=== PATIENT | male | born 1955 | race Caucasian/White ===

== ENCOUNTER 2020-07-14 15:41 | Inpatient (IN) ==
[2020-07-14] MEDS ORDERED: VANCOMYCIN INJ 1,000 MG in SODIUM CHLORIDE 0.9% 250 ML IV STA (17:20)
[2020-07-14] MEDS ORDERED: CALCIUM CARBONATE CHEW 500 MG TABLET PO PRN (17:23)
[2020-07-14] MEDS ORDERED: DEXTROSE 50% 25 GM/50 ML VIAL IV PRN (17:23)
[2020-07-14] MEDS ORDERED: ZALEPLON 5 MG CAPSULE PO PRN (17:23)
[2020-07-14] MEDS ORDERED: ALUMINUM/MAGNES/SIMETH MAX STR 30 ML UDCUP PO PRN (17:23)
[2020-07-14] MEDS ORDERED: hydrALAZINE 20 MG/1 ML VIAL IV PRN (17:23)
[2020-07-14] MEDS ORDERED: BISACODYL 5 MG TABLET PO PRN (17:23)
[2020-07-14] MEDS ORDERED: GLUCAGON 1 MG VIAL IM PRN (17:23)
[2020-07-14] MEDS ORDERED: SIMETHICONE CHEW 125 MG TABLET PO PRN (17:23)
[2020-07-14] MEDS ORDERED: LACTULOSE 20 GM/30 ML UDCUP PO PRN (17:23)
[2020-07-14] MEDS ORDERED: DOCUSATE SODIUM 100 MG CAPSULE PO PRN (17:23)
[2020-07-14] MEDS ORDERED: ACETAMINOPHEN 325 MG TABLET PO PRN (17:23)
[2020-07-14] MEDS ORDERED: guaiFENesin/DM ER 600-30 MG TABLET PO PRN (17:23)
[2020-07-14] MEDS ORDERED: VANCOMYCIN 1,000 MG VIAL ONE (17:50)
[2020-07-14 17:52] LABS: Basophils # 0.1 10*3/uL (0.0-0.2); Basophils % 0.5 % (0.0-0.8); Eosinophils # 0.1 10*3/uL (0.0-0.87); Hematocrit 30.7 VOL% (42.0-52.0); Immature Granulocytes % 0.4 %; Immature Granulocytes Absolute 0.05 #; Lymphocytes # 2.2 10*3/uL (1.4-4.0); Lymphocytes % 19.6 % (21.2-54.2); Mean Corpuscular HGB Conc 29.3 GM/DL (32-36); Mean Platelet Volume 7.8 FL (9.6-12.0); Monocytes % 8.4 % (1.7-12.7); Neutrophils % 70.1 % (38.7-73.9); Platelet Count 444 T/CUMM (130-400); Red Blood Count 3.61 MC/CUMM (3.8-5.5); Red Cell Distribution Width 16.3 % (9.3-17.3); White Blood Count 11.3 T/CUMM (4-12)
[2020-07-14] MEDS ORDERED: VANCOMYCIN INJ 1,000 MG in SODIUM CHLORIDE 0.9% 250 ML IV SCH (18:00)
[2020-07-14 18:12] LABS: Alanine Aminotransferase 15 U/L (16-61); Albumin 1.8 G/DL (3.4-5.0); Alkaline Phosphatase 94 U/L (45-117); Aspartate Amino Transferase 12 U/L (0-37); Bilirubin,Total < 0.39 MG/DL (0.2-1.0); Blood Urea Nitrogen 9 MG/DL (7-18); Calcium 8.3 MG/DL (8.5-10.1); Estimated Glom Filtration Rate 109 ML/MIN; Glucose 97 MG/DL (74-106); Osmolality,Calculated 271.8 MOS/KG (273-304); Total Protein 7.8 G/DL (6.4-8.3)
[2020-07-14] MEDS: oxyCODONE ER 40 MG TABLET PO SCH (18:22)
[2020-07-14] MEDS ORDERED: diphenhydrAMINE 50 MG/1 ML VIAL IV ONE (20:09)
[2020-07-14] MEDS ORDERED: methylPREDNISolone SOD SUC 125 MG/2 ML VIAL IV ONE (20:09)
[2020-07-14] MEDS: DIAZEPAM 5 MG TABLET PO SCH (21:34)
[2020-07-14] MEDS: CLINDAMYCIN INJ 600 MG in PREMIX 1 EACH IV SCH (21:37)
[2020-07-15] MEDS: oxyCODONE ER 10 MG TABLET PO PRN ×2 (02:28→18:25)
[2020-07-15] MEDS: CLINDAMYCIN INJ 600 MG in PREMIX 1 EACH IV SCH ×4 (03:40→20:58)
[2020-07-15 05:26] LABS: Basophils % 0.4 % (0.0-0.8); Eosinophils % 0.1 % (0.00-10.9); Hemoglobin 9.2 GM/DL (14.0-18.0); Immature Granulocytes % 0.6 %; Immature Granulocytes Absolute 0.06 #; Lymphocytes % 9.2 % (21.2-54.2); Mean Corpuscular HGB Conc 29.7 GM/DL (32-36); Mean Corpuscular Volume 85.2 FL (87-102); Mean Platelet Volume 7.9 FL (9.6-12.0); Monocytes % 1.5 % (1.7-12.7); Neutrophils % 88.2 % (38.7-73.9); Platelet Count 414 T/CUMM (130-400); Red Blood Count 3.64 MC/CUMM (3.8-5.5); Red Cell Distribution Width 16.3 % (9.3-17.3); White Blood Count 10.5 T/CUMM (4-12)
[2020-07-15 06:00] LABS: Albumin 1.8 G/DL (3.4-5.0); Bilirubin,Total 0.4 MG/DL (0.2-1.0); Calcium 8.5 MG/DL (8.5-10.1); Osmolality,Calculated 271.1 MOS/KG (273-304); Risk Ratio 4.38; Thyroid Stimulating Hormone 0.911 uIU/ml (0.358-3.74); Total Protein 7.7 G/DL (6.4-8.3); VLDL CHOLESTEROL 17.2 MG/DL
[2020-07-15] MEDS: oxyCODONE ER 40 MG TABLET PO SCH ×2 (06:06→18:40)
[2020-07-15] MEDS: ASCORBIC ACID 500 MG TABLET PO SCH (08:29)
[2020-07-15] MEDS: CHOLECALCIFEROL 1,000 UNIT TABLET PO SCH (08:29)
[2020-07-15] MEDS: DIAZEPAM 5 MG TABLET PO SCH ×3 (08:29→20:48)
[2020-07-15] MEDS: PANTOPRAZOLE 40 MG TABLET PO SCH (08:29)
[2020-07-15] MEDS: MULTIVITAMIN (CENTRUM) TABLET PO SCH (08:29)
[2020-07-15] MEDS ORDERED: SODIUM HYPOCHLORITE 0.25% IRR 1 APPLIC in IV BAG 1 EACH IRRIG PRN (09:03)
[2020-07-15] MEDS: CEFEPIME 1,000 MG in SODIUM CHLORIDE 0.9% 100 ML IV SCH ×3 (10:53→21:44)
[2020-07-15 19:05] LABS: Bilirubin,Urine Negative (Negative); Blood, Urine Negative (Negative); Glucose,Urine (UA) Negative (Negative); Ketones,Urine Negative (Negative); Mucus,Urine Occasional /LPF (Occasional); Nitrite,Urine Negative (Negative); Protein,Urine Negative; RBC,Urine 14 /HPF (0-4); Squamous Epithelial Cell,Urine Occasional /HPF (0-10); Urine Appearance Slightly Hazy (Clear); Urine Color Yellow (Yellow); Urine Specific Gravity 1.006 (1.001-1.035); Urine Urobilinogen < 2.0 EU/DL (0.2-1.0); WBC,Urine 93 /HPF (0-6)
[2020-07-16] MEDS: CLINDAMYCIN INJ 600 MG in PREMIX 1 EACH IV SCH ×3 (03:39→15:10)
[2020-07-16] MEDS: CEFEPIME 1,000 MG in SODIUM CHLORIDE 0.9% 100 ML IV SCH ×4 (03:43→20:42)
[2020-07-16] MEDS: oxyCODONE ER 40 MG TABLET PO SCH ×2 (05:48→17:24)
[2020-07-16 06:05] LABS: Basophils # 0.1 10*3/uL (0.0-0.2); Basophils % 0.4 % (0.0-0.8); Eosinophils % 0.1 % (0.00-10.9); Hematocrit 28.3 VOL% (42.0-52.0); Hemoglobin 8.5 GM/DL (14.0-18.0); Immature Granulocytes % 0.6 %; Immature Granulocytes Absolute 0.07 #; Lymphocytes # 3.2 10*3/uL (1.4-4.0); Lymphocytes % 25.7 % (21.2-54.2); Mean Corpuscular Volume 84.7 FL (87-102); Mean Platelet Volume 8.2 FL (9.6-12.0); Monocytes % 8.3 % (1.7-12.7); Neutrophils % 64.9 % (38.7-73.9); Platelet Count 382 T/CUMM (130-400); Red Blood Count 3.34 MC/CUMM (3.8-5.5); Red Cell Distribution Width 16.3 % (9.3-17.3); White Blood Count 12.4 T/CUMM (4-12)
[2020-07-16 06:28] LABS: Alanine Aminotransferase 18 U/L (16-61); Albumin 1.7 G/DL (3.4-5.0); Alkaline Phosphatase 82 U/L (45-117); Aspartate Amino Transferase 17 U/L (0-37); Bilirubin,Total < 0.39 MG/DL (0.2-1.0); Blood Urea Nitrogen 11 MG/DL (7-18); Calcium 8.4 MG/DL (8.5-10.1); Estimated Glom Filtration Rate 125 ML/MIN; Glucose 96 MG/DL (74-106); Osmolality,Calculated 273.7 MOS/KG (273-304); Total Protein 7.1 G/DL (6.4-8.3)
[2020-07-16 07:20] LABS: % Iron Saturation 34.6 % (18-50); Ferritin 302.8 ng/ml (26-388)
[2020-07-16 07:23] LABS: Folate 6.6 NG/ML (5.4-24.0)
[2020-07-16] MEDS: PANTOPRAZOLE 40 MG TABLET PO SCH (09:04)
[2020-07-16] MEDS: MULTIVITAMIN (CENTRUM) TABLET PO SCH (09:04)
[2020-07-16] MEDS: DIAZEPAM 5 MG TABLET PO SCH ×3 (09:04→20:42)
[2020-07-16] MEDS: ASCORBIC ACID 500 MG TABLET PO SCH (09:05)
[2020-07-16] MEDS: CHOLECALCIFEROL 1,000 UNIT TABLET PO SCH (09:09)
[2020-07-16] MEDS ORDERED: IRON SUCROSE 300 MG in SODIUM CHLORIDE 0.9% 100 ML IV ONE (11:00)
[2020-07-16] MEDS: FERROUS SULFATE 325 MG TABLET PO SCH ×2 (15:10→20:42)
[2020-07-17] MEDS: CEFEPIME 1,000 MG in SODIUM CHLORIDE 0.9% 100 ML IV SCH ×4 (03:14→21:13)
[2020-07-17] MEDS: oxyCODONE ER 40 MG TABLET PO SCH ×2 (05:39→17:30)
[2020-07-17 05:48] LABS: Basophils # 0.1 10*3/uL (0.0-0.2); Basophils % 0.6 % (0.0-0.8); Eosinophils # 0.1 10*3/uL (0.0-0.87); Eosinophils % 1.4 % (0.00-10.9); Hematocrit 31.6 VOL% (42.0-52.0); Hemoglobin 9.6 GM/DL (14.0-18.0); Immature Granulocytes % 0.8 %; Immature Granulocytes Absolute 0.08 #; Lymphocytes # 2.7 10*3/uL (1.4-4.0); Lymphocytes % 27.1 % (21.2-54.2); Mean Corpuscular HGB Conc 30.4 GM/DL (32-36); Mean Corpuscular Volume 82.9 FL (87-102); Mean Platelet Volume 8.1 FL (9.6-12.0); Neutrophils % 61.1 % (38.7-73.9); Platelet Count 425 T/CUMM (130-400); Red Blood Count 3.81 MC/CUMM (3.8-5.5); Red Cell Distribution Width 16.8 % (9.3-17.3); White Blood Count 10.1 T/CUMM (4-12)
[2020-07-17 06:24] LABS: Alanine Aminotransferase 19 U/L (16-61); Albumin 1.8 G/DL (3.4-5.0); Alkaline Phosphatase 82 U/L (45-117); Aspartate Amino Transferase 15 U/L (0-37); Bilirubin,Total < 0.39 MG/DL (0.2-1.0); Blood Urea Nitrogen 8 MG/DL (7-18); Calcium 8.6 MG/DL (8.5-10.1); Estimated Glom Filtration Rate 125 ML/MIN; Glucose 91 MG/DL (74-106); Osmolality,Calculated 272.7 MOS/KG (273-304); Total Protein 7.2 G/DL (6.4-8.3)
[2020-07-17] MEDS: MULTIVITAMIN (CENTRUM) TABLET PO SCH (09:55)
[2020-07-17] MEDS: DIAZEPAM 5 MG TABLET PO SCH ×3 (09:55→21:08)
[2020-07-17] MEDS: FERROUS SULFATE 325 MG TABLET PO SCH ×3 (09:55→21:08)
[2020-07-17] MEDS: PANTOPRAZOLE 40 MG TABLET PO SCH (09:55)
[2020-07-17] MEDS: CHOLECALCIFEROL 1,000 UNIT TABLET PO SCH (09:55)
[2020-07-17] MEDS: ASCORBIC ACID 500 MG TABLET PO SCH (09:55)
[2020-07-17] MEDS: ZINC SULFATE 220 MG CAPSULE PO SCH (15:50)
[2020-07-18] MEDS: oxyCODONE ER 10 MG TABLET PO PRN (03:24)
[2020-07-18] MEDS: CEFEPIME 1,000 MG in SODIUM CHLORIDE 0.9% 100 ML IV SCH ×3 (03:26→14:42)
[2020-07-18] MEDS: oxyCODONE ER 40 MG TABLET PO SCH (06:09)
[2020-07-18 06:14] LABS: Basophils # 0.1 10*3/uL (0.0-0.2); Basophils % 0.7 % (0.0-0.8); Eosinophils # 0.1 10*3/uL (0.0-0.87); Eosinophils % 0.9 % (0.00-10.9); Hematocrit 33.8 VOL% (42.0-52.0); Hemoglobin 10.3 GM/DL (14.0-18.0); Immature Granulocytes % 0.7 %; Immature Granulocytes Absolute 0.08 #; Lymphocytes # 3.5 10*3/uL (1.4-4.0); Lymphocytes % 28.9 % (21.2-54.2); Mean Corpuscular HGB Conc 30.5 GM/DL (32-36); Mean Corpuscular Volume 83.5 FL (87-102); Mean Platelet Volume 8.4 FL (9.6-12.0); Neutrophils % 59.8 % (38.7-73.9); Platelet Count 434 T/CUMM (130-400); Red Blood Count 4.05 MC/CUMM (3.8-5.5); Red Cell Distribution Width 16.9 % (9.3-17.3); White Blood Count 12.1 T/CUMM (4-12)
[2020-07-18 06:29] LABS: Albumin 1.8 G/DL (3.4-5.0); Calcium 8.3 MG/DL (8.5-10.1); Osmolality,Calculated 277.4 MOS/KG (273-304); Total Protein 7.2 G/DL (6.4-8.3)
[2020-07-18 06:52] LABS: Hypochromasia 1+; Microcytosis 1+; Platelet Estimate Adequate
[2020-07-18] MEDS: DIAZEPAM 5 MG TABLET PO SCH ×2 (08:51→14:42)
[2020-07-18] MEDS: CHOLECALCIFEROL 1,000 UNIT TABLET PO SCH (08:52)
[2020-07-18] MEDS: MULTIVITAMIN (CENTRUM) TABLET PO SCH (08:52)
[2020-07-18] MEDS: FERROUS SULFATE 325 MG TABLET PO SCH ×2 (08:53→14:42)
[2020-07-18] MEDS: ASCORBIC ACID 500 MG TABLET PO SCH (08:53)
[2020-07-18] MEDS: ZINC SULFATE 220 MG CAPSULE PO SCH (08:53)
[2020-07-18] MEDS: PANTOPRAZOLE 40 MG TABLET PO SCH (08:55)
[2020-07-18 15:46] VITALS: BP 128/64
== END 2020-07-18 18:28 | disposition home health service (06) | DRG 593 ==
LOC: EDUNIT# → EDBD → N.ED 15:41 → SUATTDRO 17:23 → N.EDINP 17:23 → N.3E 20:15
PROVIDERS: ADMIT Hospitalist; ATTEND Family Medicine

== ENCOUNTER 2021-06-30 14:55 | Inpatient (IN) ==
[2021-06-30] MEDS ORDERED: ONDANSETRON 4 MG/2 ML VIAL ONE (16:54)
[2021-06-30] MEDS ORDERED: HYDROmorphone 2 MG/1 ML VIAL ONE (16:55)
[2021-06-30] MEDS ORDERED: ONDANSETRON 4 MG/2 ML VIAL IV STA (17:01)
[2021-06-30] MEDS ORDERED: HYDROmorphone 2 MG/1 ML VIAL IV STA (17:01)
[2021-06-30] MEDS ORDERED: GLUCAGON 1 MG VIAL IM PRN (17:31)
[2021-06-30] MEDS ORDERED: DEXTROSE 50% 25 GM/50 ML VIAL IV PRN (17:31)
[2021-06-30 17:43] LABS: Basophils % 0.3 % (0.0-0.8); Hematocrit 48.2 VOL% (42.0-52.0); Hemoglobin 15.6 GM/DL (14.0-18.0); Immature Granulocytes % 0.5 %; Immature Granulocytes Absolute 0.07 #; Lymphocytes # 1.9 10*3/uL (1.4-4.0); Lymphocytes % 12.6 % (21.2-54.2); Mean Corpuscular HGB Conc 32.4 GM/DL (32-36); Mean Corpuscular Volume 88.6 FL (87-102); Mean Platelet Volume 8.2 FL (9.6-12.0); Monocytes % 17.5 % (1.7-12.7); Neutrophils % 69.1 % (38.7-73.9); Platelet Count 332 T/CUMM (130-400); Red Blood Count 5.44 MC/CUMM (3.8-5.5); Red Cell Distribution Width 15.7 % (9.3-17.3); White Blood Count 15.3 T/CUMM (4-12)
[2021-06-30 17:50] LABS: Bilirubin,Urine Negative (Negative); Blood, Urine Small mg/dL (Negative); Glucose,Urine (UA) Negative (Negative); Ketones,Urine 20 mg/dL (Negative); Mucus,Urine Occasional /LPF (Occasional); Nitrite,Urine Negative (Negative); Protein,Urine 100 MG/DL; RBC,Urine 4 /HPF (0-4); Urine Appearance CLEAR (Clear); Urine Color Yellow (Yellow)
[2021-06-30 18:04] LABS: Albumin 3.4 G/DL (3.4-5.0); Calcium 8.8 MG/DL (8.5-10.1); Osmolality,Calculated 283.3 MOS/KG (273-304); Potassium 3.1 MMOL/L (3.5-5.1); Total Protein 8.4 G/DL (6.4-8.2)
[2021-06-30 18:05] LABS: Band Neutrophils 11 % (0-10); Lymphocytes 13 % (20-55); Metamyelocytes 1 %; Segmented Neutrophils 60 % (50-85); Total Cells Counted 100
[2021-06-30 18:06] LABS: Anisocytosis 1+; Macrocytosis Slight; Microcytosis 1+; Platelet Estimate Normal; Polychromasia Slight
[2021-06-30] MEDS ORDERED: ENOXAPARIN 100 MG/ML SYRINGE SUBCUT SCH (18:30)
[2021-06-30] MEDS: SODIUM CHLORIDE 0.9% 1,000 ML IV SCH (19:20)
[2021-06-30] MEDS: ALBUTEROL/IPRATROPIUM 3 ML NEB RESP TX SCH ×2 (19:44→23:55)
[2021-06-30] MEDS: cefTRIAXone 1,000 MG in SODIUM CHLORIDE 0.9% 100 ML IV SCH (20:02)
[2021-06-30] MEDS: AZITHROMYCIN INJ 500 MG in SODIUM CHLORIDE 0.9% 250 ML IV SCH (20:42)
[2021-06-30] MEDS ORDERED: POTASSIUM CHLORIDE INJ 40 MEQ in SODIUM CHLORIDE 0.9% 500 ML IV ONE (22:00)
[2021-06-30] MEDS: HYDROmorphone 2 MG/1 ML VIAL IV PRN (23:58)
[2021-07-01] MEDS: HYDROmorphone 2 MG/1 ML VIAL IV PRN ×3 (04:08→21:34)
[2021-07-01 06:00] LABS: Basophils % 0.3 % (0.0-0.8); Eosinophils % 0.3 % (0.00-10.9); Hematocrit 47.4 VOL% (42.0-52.0); Hemoglobin 15.7 GM/DL (14.0-18.0); Immature Granulocytes % 0.5 %; Immature Granulocytes Absolute 0.08 #; Lymphocytes # 1.8 10*3/uL (1.4-4.0); Lymphocytes % 12.3 % (21.2-54.2); Mean Corpuscular HGB Conc 33.1 GM/DL (32-36); Mean Corpuscular Volume 89.9 FL (87-102); Monocytes % 18.1 % (1.7-12.7); Neutrophils % 68.5 % (38.7-73.9); Platelet Count 309 T/CUMM (130-400); Red Blood Count 5.27 MC/CUMM (3.8-5.5); Red Cell Distribution Width 15.7 % (9.3-17.3); White Blood Count 14.8 T/CUMM (4-12)
[2021-07-01 06:11] LABS: Albumin 3.1 G/DL (3.4-5.0); Bilirubin,Total 1.5 MG/DL (0.20-1.00); Calcium 8.4 MG/DL (8.5-10.1); Potassium 3.4 MMOL/L (3.5-5.1)
[2021-07-01 06:34] LABS: Band Neutrophils 1 % (0-10); Lymphocytes 12 % (20-55); Platelet Estimate Adequate; Segmented Neutrophils 70 % (50-85); Total Cells Counted 100
[2021-07-01] MEDS: ALBUTEROL/IPRATROPIUM 3 ML NEB RESP TX SCH ×4 (06:52→19:55)
[2021-07-01] MEDS ORDERED: ENOXAPARIN 100 MG/ML SYRINGE SUBCUT SCH (08:00)
[2021-07-01] MEDS: POTASSIUM CHLORIDE RIDER 10 MEQ/100 ML PREMIX IV PRN ×3 (10:08→12:39)
[2021-07-01] MEDS: HEPARIN DRIP 25,000 UNITS/500 ML PREMIX IV SCH (11:14)
[2021-07-01] MEDS: hydrALAZINE 20 MG/1 ML VIAL IV PRN ×2 (12:10→18:54)
[2021-07-01] MEDS: SODIUM CHLORIDE 0.9% 1,000 ML IV SCH ×3 (14:00→23:37)
[2021-07-01] MEDS: cefTRIAXone 1,000 MG in SODIUM CHLORIDE 0.9% 100 ML IV SCH (17:50)
[2021-07-01] MEDS: AZITHROMYCIN INJ 500 MG in SODIUM CHLORIDE 0.9% 250 ML IV SCH (18:20)
[2021-07-02] MEDS: METOPROLOL TARTRATE 5 MG/5 ML VIAL IV STA ×2 (00:17→07:19)
[2021-07-02 00:42] LABS: Basophils # 0.1 10*3/uL (0.0-0.2); Basophils % 0.3 % (0.0-0.8); Eosinophils # 0.1 10*3/uL (0.0-0.87); Eosinophils % 0.3 % (0.00-10.9); Hematocrit 44.6 VOL% (42.0-52.0); Hemoglobin 13.9 GM/DL (14.0-18.0); Immature Granulocytes % 0.8 %; Immature Granulocytes Absolute 0.16 #; Lymphocytes # 3.8 10*3/uL (1.4-4.0); Lymphocytes % 20.2 % (21.2-54.2); Mean Corpuscular HGB Conc 31.2 GM/DL (32-36); Mean Corpuscular Volume 91.2 FL (87-102); Mean Platelet Volume 9.5 FL (9.6-12.0); Monocytes % 11.9 % (1.7-12.7); Neutrophils % 66.5 % (38.7-73.9); Platelet Count 274 T/CUMM (130-400); Red Blood Count 4.89 MC/CUMM (3.8-5.5); Red Cell Distribution Width 15.9 % (9.3-17.3)
[2021-07-02] MEDS ORDERED: DILTIAZEM 25 MG/5 ML VIAL IV ONE (00:51)
[2021-07-02 00:52] LABS: Alanine Aminotransferase < 6 U/L (16-61); Albumin 2.7 G/DL (3.4-5.0); Alkaline Phosphatase 81 U/L (45-117); Aspartate Amino Transferase 21 U/L (0-37); Blood Urea Nitrogen 15 MG/DL (7-18); Calcium 7.9 MG/DL (8.5-10.1); Carbon Dioxide 24 MMOL/L (21-32); Estimated Glom Filtration Rate 164 ML/MIN; Glucose 93 MG/DL (74-106); Osmolality,Calculated 275.7 MOS/KG (273-304); Sodium 138 MMOL/L (136-145); Total Protein 7.1 G/DL (6.4-8.2)
[2021-07-02 01:17] LABS: Reactive Lymphocytes 1+
[2021-07-02 01:18] LABS: Hypochromasia 1+; Platelet Estimate Normal
[2021-07-02] MEDS: POTASSIUM CHLORIDE RIDER 10 MEQ/100 ML PREMIX IV PRN ×9 (01:21→18:10)
[2021-07-02] MEDS ORDERED: DILTIAZEM INJ 100 MG in SODIUM CHLORIDE 0.9% 100 ML IV SCH (01:30)
[2021-07-02] MEDS: ALBUTEROL/IPRATROPIUM 3 ML NEB RESP TX SCH ×4 (02:49→20:34)
[2021-07-02] MEDS: HEPARIN DRIP 25,000 UNITS/500 ML PREMIX IV SCH ×3 (03:56→20:30)
[2021-07-02] MEDS: HYDROmorphone 2 MG/1 ML VIAL IV PRN ×5 (03:58→21:18)
[2021-07-02 05:33] LABS: Basophils % 0.2 % (0.0-0.8); Hematocrit 38.8 VOL% (42.0-52.0); Hemoglobin 12.7 GM/DL (14.0-18.0); Immature Granulocytes % 0.5 %; Immature Granulocytes Absolute 0.07 #; Lymphocytes # 2.7 10*3/uL (1.4-4.0); Mean Corpuscular HGB Conc 32.7 GM/DL (32-36); Mean Corpuscular Volume 90.7 FL (87-102); Neutrophils % 68.3 % (38.7-73.9); Platelet Count 218 T/CUMM (130-400); Red Blood Count 4.28 MC/CUMM (3.8-5.5); Red Cell Distribution Width 15.8 % (9.3-17.3); White Blood Count 13.4 T/CUMM (4-12)
[2021-07-02 05:57] LABS: Albumin 2.4 G/DL (3.4-5.0); Bilirubin,Total 1.2 MG/DL (0.20-1.00); Calcium 7.8 MG/DL (8.5-10.1); Osmolality,Calculated 280.3 MOS/KG (273-304); Potassium 3.3 MMOL/L (3.5-5.1); Total Protein 6.6 G/DL (6.4-8.2)
[2021-07-02] MEDS: SODIUM CHLORIDE 0.9% 1,000 ML IV SCH ×3 (09:34→17:04)
[2021-07-02] MEDS: PIPERACILLIN/TAZOBACTAM 3,375 MG in SODIUM CHLORIDE 0.9% 100 ML IV SCH ×2 (09:56→21:11)
[2021-07-02] MEDS ORDERED: MAGNESIUM SULF RIDER 4 GM/100 ML PREMIX IV PRN (11:47)
[2021-07-02] MEDS ORDERED: MAGNESIUM SULF RIDER 2 GM/50 ML PREMIX IV PRN (11:47)
[2021-07-02] MEDS: METOPROLOL TARTRATE 5 MG/5 ML VIAL IV SCH ×2 (12:23→17:04)
[2021-07-03] MEDS: ALBUTEROL/IPRATROPIUM 3 ML NEB RESP TX SCH ×4 (00:41→20:17)
[2021-07-03] MEDS: HYDROmorphone 2 MG/1 ML VIAL IV PRN ×6 (00:47→21:53)
[2021-07-03] MEDS: METOPROLOL TARTRATE 5 MG/5 ML VIAL IV SCH ×4 (01:20→17:25)
[2021-07-03] MEDS: PIPERACILLIN/TAZOBACTAM 3,375 MG in SODIUM CHLORIDE 0.9% 100 ML IV SCH ×3 (01:50→17:20)
[2021-07-03 06:52] LABS: Basophils # 0.1 10*3/uL (0.0-0.2); Basophils % 0.4 % (0.0-0.8); Eosinophils # 0.2 10*3/uL (0.0-0.87); Eosinophils % 1.2 % (0.00-10.9); Hematocrit 43.3 VOL% (42.0-52.0); Hemoglobin 13.6 GM/DL (14.0-18.0); Immature Granulocytes % 0.9 %; Immature Granulocytes Absolute 0.11 #; Lymphocytes # 3.2 10*3/uL (1.4-4.0); Lymphocytes % 24.8 % (21.2-54.2); Mean Corpuscular HGB Conc 31.4 GM/DL (32-36); Mean Corpuscular Volume 93.7 FL (87-102); Mean Platelet Volume 10.5 FL (9.6-12.0); Monocytes % 10.9 % (1.7-12.7); Neutrophils % 61.8 % (38.7-73.9); Platelet Count 174 T/CUMM (130-400); Red Blood Count 4.62 MC/CUMM (3.8-5.5); Red Cell Distribution Width 15.3 % (9.3-17.3); White Blood Count 12.8 T/CUMM (4-12)
[2021-07-03 07:08] LABS: Alanine Aminotransferase < 6 U/L (16-61); Albumin 2.3 G/DL (3.4-5.0); Alkaline Phosphatase 74 U/L (45-117); Aspartate Amino Transferase 21 U/L (0-37); Blood Urea Nitrogen 13 MG/DL (7-18); Calcium 8.2 MG/DL (8.5-10.1); Carbon Dioxide 23 MMOL/L (21-32); Estimated Glom Filtration Rate 164 ML/MIN; Glucose 68 MG/DL (74-106); Potassium 3.8 MMOL/L (3.5-5.1); Sodium 136 MMOL/L (136-145); Total Protein 6.7 G/DL (6.4-8.2)
[2021-07-03 07:17] LABS: Cancer Antigen 19-9 3.42 U/ML (0-35); Carcinoembryonic Antigen 5.5 NG/ML (0.0-5.0)
[2021-07-03] MEDS: DEXTROSE 5% LACTATED RINGERS 1,000 ML IV SCH ×2 (07:41→16:38)
[2021-07-03 08:32] LABS: INR 1.1; PT Patient Result 12.5 SECS (10.5-12.0)
[2021-07-03] MEDS: SODIUM CHLORIDE 0.45% 1,000 ML IV SCH (11:33)
[2021-07-03] MEDS: HEPARIN DRIP 25,000 UNITS/500 ML PREMIX IV SCH ×2 (11:33→21:32)
[2021-07-03] MEDS ORDERED: DIAZEPAM 5 MG TABLET PO ONE (12:30)
[2021-07-03] MEDS: SODIUM CHLORIDE 0.9% 1,000 ML IV SCH (13:04)
[2021-07-03] MEDS: SODIUM HYPOCHLORITE 0.25% IRRIG 473 ML BOTTLE TOP SCH (14:52)
[2021-07-03] MEDS: hydrALAZINE 20 MG/1 ML VIAL IV PRN (15:20)
[2021-07-04] MEDS: ALBUTEROL/IPRATROPIUM 3 ML NEB RESP TX SCH ×4 (00:30→19:15)
[2021-07-04] MEDS: DEXTROSE 5% LACTATED RINGERS 1,000 ML IV SCH ×4 (01:03→23:14)
[2021-07-04] MEDS: PIPERACILLIN/TAZOBACTAM 3,375 MG in SODIUM CHLORIDE 0.9% 100 ML IV SCH ×3 (01:20→18:35)
[2021-07-04] MEDS: METOPROLOL TARTRATE 5 MG/5 ML VIAL IV SCH ×4 (01:20→18:35)
[2021-07-04] MEDS: HYDROmorphone 2 MG/1 ML VIAL IV PRN ×5 (01:20→23:50)
[2021-07-04 05:50] LABS: Albumin 2.5 G/DL (3.4-5.0); Bilirubin,Total 1.9 MG/DL (0.20-1.00); Calcium 8.3 MG/DL (8.5-10.1); Osmolality,Calculated 272.7 MOS/KG (273-304); Potassium 2.9 MMOL/L (3.5-5.1)
[2021-07-04 07:27] LABS: Basophils # 0.1 10*3/uL (0.0-0.2); Basophils % 0.4 % (0.0-0.8); Eosinophils # 0.2 10*3/uL (0.0-0.87); Eosinophils % 1.7 % (0.00-10.9); Hematocrit 40.4 VOL% (42.0-52.0); Hemoglobin 12.9 GM/DL (14.0-18.0); Immature Granulocytes Absolute 0.14 #; Lymphocytes # 2.5 10*3/uL (1.4-4.0); Lymphocytes % 18.1 % (21.2-54.2); Mean Corpuscular HGB Conc 31.9 GM/DL (32-36); Mean Platelet Volume 9.7 FL (9.6-12.0); Monocytes % 10.1 % (1.7-12.7); Neutrophils % 68.7 % (38.7-73.9); Platelet Count 291 T/CUMM (130-400); Red Blood Count 4.49 MC/CUMM (3.8-5.5); White Blood Count 13.7 T/CUMM (4-12)
[2021-07-04] MEDS: hydrALAZINE 20 MG/1 ML VIAL IV PRN (10:03)
[2021-07-04] MEDS: POTASSIUM CHLORIDE RIDER 10 MEQ/100 ML PREMIX IV SCH ×3 (10:08→23:10)
[2021-07-04] MEDS ORDERED: DIAZEPAM 5 MG TABLET PO ONE (10:33)
[2021-07-04] MEDS: HEPARIN DRIP 25,000 UNITS/500 ML PREMIX IV SCH ×2 (11:09→19:29)
[2021-07-04] MEDS ORDERED: MAGNESIUM SULF RIDER 1 GM/100 ML PREMIX IV ONE (11:14)
[2021-07-04] MEDS: SODIUM CHLORIDE 0.45% 1,000 ML IV SCH (12:16)
[2021-07-04 14:18] LABS: INR 1.5; PT Patient Result 15.8 SECS (10.5-12.0); Partial Thromboplastin Time 32.2 SECS (23.9-33.8)
[2021-07-04] MEDS: SODIUM HYPOCHLORITE 0.25% IRRIG 473 ML BOTTLE TOP SCH (14:26)
[2021-07-04] MEDS ORDERED: HEPARIN 5,000 UNIT/1 ML VIAL IV ONE (14:29)
[2021-07-04 21:42] LABS: INR 1.3; PT Patient Result 14.7 SECS (10.5-12.0); Partial Thromboplastin Time 68.5 SECS (23.9-33.8)
[2021-07-05] MEDS: ONDANSETRON 4 MG/2 ML VIAL IV PRN ×4 (00:10→23:19)
[2021-07-05] MEDS: ALBUTEROL/IPRATROPIUM 3 ML NEB RESP TX SCH ×4 (00:25→19:25)
[2021-07-05] MEDS: POTASSIUM CHLORIDE RIDER 10 MEQ/100 ML PREMIX IV SCH ×6 (01:15→18:07)
[2021-07-05] MEDS: PIPERACILLIN/TAZOBACTAM 3,375 MG in SODIUM CHLORIDE 0.9% 100 ML IV SCH ×3 (01:30→17:28)
[2021-07-05] MEDS: METOPROLOL TARTRATE 5 MG/5 ML VIAL IV SCH ×4 (01:30→17:58)
[2021-07-05] MEDS: HYDROmorphone 2 MG/1 ML VIAL IV PRN ×6 (03:25→21:37)
[2021-07-05 06:23] LABS: Basophils % 0.2 % (0.0-0.8); Eosinophils # 0.3 10*3/uL (0.0-0.87); Eosinophils % 1.6 % (0.00-10.9); Hematocrit 42.2 VOL% (42.0-52.0); Hemoglobin 13.3 GM/DL (14.0-18.0); Immature Granulocytes Absolute 0.18 #; Lymphocytes # 3.1 10*3/uL (1.4-4.0); Lymphocytes % 17.2 % (21.2-54.2); Mean Corpuscular HGB Conc 31.5 GM/DL (32-36); Mean Corpuscular Volume 89.6 FL (87-102); Mean Platelet Volume 9.2 FL (9.6-12.0); Monocytes % 8.3 % (1.7-12.7); Neutrophils % 71.7 % (38.7-73.9); Platelet Count 337 T/CUMM (130-400); Red Blood Count 4.71 MC/CUMM (3.8-5.5); Red Cell Distribution Width 14.7 % (9.3-17.3); White Blood Count 17.9 T/CUMM (4-12)
[2021-07-05 06:44] LABS: Albumin 2.4 G/DL (3.4-5.0); Bilirubin,Total 1.2 MG/DL (0.20-1.00); Calcium 8.2 MG/DL (8.5-10.1); Osmolality,Calculated 272.7 MOS/KG (273-304); Potassium 2.8 MMOL/L (3.5-5.1); Total Protein 7.1 G/DL (6.4-8.2)
[2021-07-05] MEDS: DEXTROSE 5% LACTATED RINGERS 1,000 ML IV SCH ×3 (09:18→23:29)
[2021-07-05] MEDS: HEPARIN DRIP 25,000 UNITS/500 ML PREMIX IV SCH (09:18)
[2021-07-05] MEDS: POTASSIUM CHLORIDE RIDER 10 MEQ/100 ML PREMIX IV PRN ×3 (09:21→11:37)
[2021-07-05] MEDS: SODIUM HYPOCHLORITE 0.25% IRRIG 473 ML BOTTLE TOP SCH (09:22)
[2021-07-05] MEDS: hydrALAZINE 20 MG/1 ML VIAL IV SCH ×3 (09:27→21:36)
[2021-07-05] MEDS: SODIUM CHLORIDE 0.45% 1,000 ML IV SCH (10:29)
[2021-07-05] MEDS ORDERED: DIAZEPAM 10 MG/2 ML SYRINGE IV PRN (11:02)
[2021-07-05 21:18] LABS: Potassium 3.5 MMOL/L (3.5-5.1)
[2021-07-06] MEDS: ALBUTEROL/IPRATROPIUM 3 ML NEB RESP TX SCH ×2 (00:17→20:04)
[2021-07-06] MEDS: METOPROLOL TARTRATE 5 MG/5 ML VIAL IV SCH ×5 (00:29→17:12)
[2021-07-06] MEDS: PIPERACILLIN/TAZOBACTAM 3,375 MG in SODIUM CHLORIDE 0.9% 100 ML IV SCH ×3 (00:35→16:43)
[2021-07-06] MEDS: ONDANSETRON 4 MG/2 ML VIAL IV PRN ×3 (03:20→21:05)
[2021-07-06] MEDS: HYDROmorphone 2 MG/1 ML VIAL IV PRN ×5 (03:20→21:07)
[2021-07-06] MEDS: hydrALAZINE 20 MG/1 ML VIAL IV SCH ×4 (03:31→23:00)
[2021-07-06 06:24] LABS: Basophils # 0.1 10*3/uL (0.0-0.2); Basophils % 0.5 % (0.0-0.8); Eosinophils # 0.4 10*3/uL (0.0-0.87); Eosinophils % 2.3 % (0.00-10.9); Hematocrit 42.6 VOL% (42.0-52.0); Hemoglobin 13.7 GM/DL (14.0-18.0); Immature Granulocytes % 1.2 %; Immature Granulocytes Absolute 0.19 #; Lymphocytes # 3.4 10*3/uL (1.4-4.0); Lymphocytes % 20.5 % (21.2-54.2); Mean Corpuscular HGB Conc 32.2 GM/DL (32-36); Mean Corpuscular Volume 90.6 FL (87-102); Monocytes % 8.4 % (1.7-12.7); Neutrophils % 67.1 % (38.7-73.9); Platelet Count 326 T/CUMM (130-400); White Blood Count 16.5 T/CUMM (4-12)
[2021-07-06 06:42] LABS: Albumin 2.4 G/DL (3.4-5.0); Bilirubin,Total 0.8 MG/DL (0.20-1.00); Calcium 8.6 MG/DL (8.5-10.1); Osmolality,Calculated 266.2 MOS/KG (273-304); Potassium 3.9 MMOL/L (3.5-5.1); Total Protein 6.9 G/DL (6.4-8.2)
[2021-07-06] MEDS: POTASSIUM CHLORIDE RIDER 10 MEQ/100 ML PREMIX IV PRN ×2 (06:55→11:33)
[2021-07-06] MEDS ORDERED: LACTATED RINGERS 1,000 ML IV SCH (08:30)
[2021-07-06] MEDS ORDERED: LIDOCAINE 2% 5 ML VIAL ONE (08:46)
[2021-07-06] MEDS ORDERED: ETOMIDATE 20 MG/10 ML VIAL IV ONE (08:46)
[2021-07-06] MEDS ORDERED: propofoL 200 MG/20 ML VIAL IV ONE (08:46)
[2021-07-06] MEDS: SODIUM CHLORIDE 0.45% 1,000 ML IV SCH (10:30)
[2021-07-06] MEDS: DEXTROSE 5% LACTATED RINGERS 1,000 ML IV SCH ×2 (10:35→16:42)
[2021-07-06] MEDS: SODIUM HYPOCHLORITE 0.25% IRRIG 473 ML BOTTLE TOP SCH (10:42)
[2021-07-07] MEDS: METOPROLOL TARTRATE 5 MG/5 ML VIAL IV SCH ×4 (00:20→19:43)
[2021-07-07] MEDS: DEXTROSE 5% LACTATED RINGERS 1,000 ML IV SCH ×5 (01:09→23:26)
[2021-07-07] MEDS: HYDROmorphone 2 MG/1 ML VIAL IV PRN ×7 (01:19→22:53)
[2021-07-07] MEDS: ONDANSETRON 4 MG/2 ML VIAL IV PRN ×3 (01:19→07:30)
[2021-07-07] MEDS: ALBUTEROL/IPRATROPIUM 3 ML NEB RESP TX SCH ×6 (01:44→19:50)
[2021-07-07] MEDS: PIPERACILLIN/TAZOBACTAM 3,375 MG in SODIUM CHLORIDE 0.9% 100 ML IV SCH ×3 (03:47→17:54)
[2021-07-07] MEDS: hydrALAZINE 20 MG/1 ML VIAL IV SCH ×4 (05:33→19:46)
[2021-07-07 06:41] LABS: Basophils # 0.1 10*3/uL (0.0-0.2); Basophils % 0.7 % (0.0-0.8); Eosinophils # 0.6 10*3/uL (0.0-0.87); Eosinophils % 4.8 % (0.00-10.9); Hematocrit 38.7 VOL% (42.0-52.0); Hemoglobin 12.2 GM/DL (14.0-18.0); Immature Granulocytes % 1.1 %; Immature Granulocytes Absolute 0.14 #; Lymphocytes % 22.5 % (21.2-54.2); Mean Corpuscular HGB Conc 31.5 GM/DL (32-36); Mean Corpuscular Volume 91.7 FL (87-102); Mean Platelet Volume 9.3 FL (9.6-12.0); Monocytes % 9.7 % (1.7-12.7); Neutrophils % 61.2 % (38.7-73.9); Platelet Count 296 T/CUMM (130-400); Red Blood Count 4.22 MC/CUMM (3.8-5.5); Red Cell Distribution Width 14.9 % (9.3-17.3); White Blood Count 13.1 T/CUMM (4-12)
[2021-07-07 07:39] LABS: Osmolality,Calculated 271.7 MOS/KG (273-304); Potassium 3.7 MMOL/L (3.5-5.1)
[2021-07-07] MEDS: SODIUM HYPOCHLORITE 0.25% IRRIG 473 ML BOTTLE TOP SCH (13:40)
[2021-07-07] MEDS: METOCLOPRAMIDE 10 MG/2 ML VIAL IV SCH (17:54)
[2021-07-08] MEDS: ALBUTEROL/IPRATROPIUM 3 ML NEB RESP TX SCH ×4 (00:17→19:50)
[2021-07-08] MEDS: METOPROLOL TARTRATE 5 MG/5 ML VIAL IV SCH ×3 (00:46→13:06)
[2021-07-08] MEDS: METOCLOPRAMIDE 10 MG/2 ML VIAL IV SCH ×4 (00:46→17:22)
[2021-07-08] MEDS: PIPERACILLIN/TAZOBACTAM 3,375 MG in SODIUM CHLORIDE 0.9% 100 ML IV SCH ×3 (00:49→17:24)
[2021-07-08] MEDS: hydrALAZINE 20 MG/1 ML VIAL IV SCH ×4 (02:17→19:52)
[2021-07-08] MEDS: HYDROmorphone 2 MG/1 ML VIAL IV PRN ×6 (03:52→21:48)
[2021-07-08 05:28] LABS: Basophils # 0.1 10*3/uL (0.0-0.2); Basophils % 0.8 % (0.0-0.8); Eosinophils # 0.7 10*3/uL (0.0-0.87); Eosinophils % 4.6 % (0.00-10.9); Hematocrit 41.3 VOL% (42.0-52.0); Hemoglobin 13.2 GM/DL (14.0-18.0); Immature Granulocytes Absolute 0.15 #; Lymphocytes # 3.3 10*3/uL (1.4-4.0); Lymphocytes % 21.2 % (21.2-54.2); Mean Corpuscular Volume 90.6 FL (87-102); Mean Platelet Volume 9.4 FL (9.6-12.0); Monocytes % 9.4 % (1.7-12.7); Platelet Count 368 T/CUMM (130-400); Red Blood Count 4.56 MC/CUMM (3.8-5.5); Red Cell Distribution Width 14.8 % (9.3-17.3); White Blood Count 15.5 T/CUMM (4-12)
[2021-07-08 05:58] LABS: Calcium 8.5 MG/DL (8.5-10.1); Osmolality,Calculated 269.8 MOS/KG (273-304); Potassium 3.5 MMOL/L (3.5-5.1)
[2021-07-08] MEDS: DEXTROSE 5% LACTATED RINGERS 1,000 ML IV SCH ×2 (09:54→16:23)
[2021-07-08] MEDS: SODIUM HYPOCHLORITE 0.25% IRRIG 473 ML BOTTLE TOP SCH (14:08)
[2021-07-08] MEDS: METOPROLOL TARTRATE 50 MG TABLET PO SCH (20:11)
[2021-07-09] MEDS: METOCLOPRAMIDE 10 MG/2 ML VIAL IV SCH ×4 (00:36→18:43)
[2021-07-09] MEDS: DEXTROSE 5% LACTATED RINGERS 1,000 ML IV SCH ×3 (00:53→16:21)
[2021-07-09] MEDS: ALBUTEROL/IPRATROPIUM 3 ML NEB RESP TX SCH ×4 (01:02→19:38)
[2021-07-09] MEDS: hydrALAZINE 20 MG/1 ML VIAL IV SCH (01:06)
[2021-07-09] MEDS: HYDROmorphone 2 MG/1 ML VIAL IV PRN ×4 (01:22→22:18)
[2021-07-09] MEDS: PIPERACILLIN/TAZOBACTAM 3,375 MG in SODIUM CHLORIDE 0.9% 100 ML IV SCH ×3 (01:22→16:29)
[2021-07-09 06:03] LABS: Basophils # 0.1 10*3/uL (0.0-0.2); Basophils % 0.5 % (0.0-0.8); Eosinophils # 0.8 10*3/uL (0.0-0.87); Eosinophils % 5.4 % (0.00-10.9); Hematocrit 39.8 VOL% (42.0-52.0); Hemoglobin 12.5 GM/DL (14.0-18.0); Immature Granulocytes % 0.9 %; Immature Granulocytes Absolute 0.14 #; Lymphocytes # 2.9 10*3/uL (1.4-4.0); Lymphocytes % 18.5 % (21.2-54.2); Mean Corpuscular HGB Conc 31.4 GM/DL (32-36); Mean Corpuscular Volume 89.6 FL (87-102); Mean Platelet Volume 8.8 FL (9.6-12.0); Monocytes % 10.4 % (1.7-12.7); Neutrophils % 64.3 % (38.7-73.9); Platelet Count 357 T/CUMM (130-400); Red Blood Count 4.44 MC/CUMM (3.8-5.5); White Blood Count 15.4 T/CUMM (4-12)
[2021-07-09 06:22] LABS: Calcium 8.6 MG/DL (8.5-10.1); Osmolality,Calculated 269.8 MOS/KG (273-304); Potassium 3.2 MMOL/L (3.5-5.1)
[2021-07-09] MEDS ORDERED: hydrALAZINE 20 MG/1 ML VIAL IV PRN (07:52)
[2021-07-09] MEDS: METOPROLOL TARTRATE 50 MG TABLET PO SCH ×2 (09:07→20:17)
[2021-07-09] MEDS: hydrALAZINE 25 MG TABLET PO SCH ×4 (09:07→20:08)
[2021-07-09] MEDS: SODIUM HYPOCHLORITE 0.25% IRRIG 473 ML BOTTLE TOP SCH (09:08)
[2021-07-09] MEDS ORDERED: POTASSIUM CHLORIDE 20 MEQ PACK PO ONE (09:51)
[2021-07-09] MEDS: POTASSIUM CHLORIDE RIDER 10 MEQ/100 ML PREMIX IV SCH (09:57)
[2021-07-10] MEDS: METOCLOPRAMIDE 10 MG/2 ML VIAL IV SCH ×3 (00:07→14:11)
[2021-07-10] MEDS: ALBUTEROL/IPRATROPIUM 3 ML NEB RESP TX SCH ×4 (01:47→19:00)
[2021-07-10] MEDS: DEXTROSE 5% LACTATED RINGERS 1,000 ML IV SCH ×4 (02:00→23:35)
[2021-07-10] MEDS: HYDROmorphone 2 MG/1 ML VIAL IV PRN ×5 (04:55→21:44)
[2021-07-10 04:59] LABS: Basophils # 0.1 10*3/uL (0.0-0.2); Basophils % 0.7 % (0.0-0.8); Eosinophils % 6.5 % (0.00-10.9); Hematocrit 38.6 VOL% (42.0-52.0); Hemoglobin 12.1 GM/DL (14.0-18.0); Immature Granulocytes % 0.6 %; Immature Granulocytes Absolute 0.09 #; Lymphocytes # 2.9 10*3/uL (1.4-4.0); Lymphocytes % 19.9 % (21.2-54.2); Mean Corpuscular HGB Conc 31.3 GM/DL (32-36); Mean Corpuscular Volume 91.5 FL (87-102); Mean Platelet Volume 9.2 FL (9.6-12.0); Monocytes % 9.2 % (1.7-12.7); Neutrophils % 63.1 % (38.7-73.9); Platelet Count 386 T/CUMM (130-400); Red Blood Count 4.22 MC/CUMM (3.8-5.5); Red Cell Distribution Width 15.3 % (9.3-17.3); White Blood Count 14.7 T/CUMM (4-12)
[2021-07-10 08:14] LABS: Calcium 8.1 MG/DL (8.5-10.1); Osmolality,Calculated 271.7 MOS/KG (273-304); Potassium 4.3 MMOL/L (3.5-5.1)
[2021-07-10] MEDS: hydrALAZINE 25 MG TABLET PO SCH ×4 (10:03→21:43)
[2021-07-10] MEDS: METOPROLOL TARTRATE 50 MG TABLET PO SCH ×2 (10:03→21:43)
[2021-07-10] MEDS: SODIUM HYPOCHLORITE 0.25% IRRIG 473 ML BOTTLE TOP SCH (10:08)
[2021-07-10] MEDS: METOCLOPRAMIDE 10 MG/10 ML UDCUP PO SCH ×2 (18:07→23:35)
[2021-07-11] MEDS: ALBUTEROL/IPRATROPIUM 3 ML NEB RESP TX SCH ×4 (00:09→19:35)
[2021-07-11] MEDS: HYDROmorphone 2 MG/1 ML VIAL IV PRN ×5 (01:02→20:35)
[2021-07-11] MEDS: METOCLOPRAMIDE 10 MG/10 ML UDCUP PO SCH ×3 (05:58→19:12)
[2021-07-11 06:37] LABS: Basophils # 0.1 10*3/uL (0.0-0.2); Basophils % 0.8 % (0.0-0.8); Eosinophils # 0.4 10*3/uL (0.0-0.87); Eosinophils % 2.4 % (0.00-10.9); Hematocrit 41.8 VOL% (42.0-52.0); Hemoglobin 12.8 GM/DL (14.0-18.0); Immature Granulocytes % 0.6 %; Immature Granulocytes Absolute 0.09 #; Lymphocytes # 3.5 10*3/uL (1.4-4.0); Lymphocytes % 22.9 % (21.2-54.2); Mean Corpuscular HGB Conc 30.6 GM/DL (32-36); Mean Corpuscular Volume 94.8 FL (87-102); Mean Platelet Volume 11.8 FL (9.6-12.0); Monocytes % 9.1 % (1.7-12.7); Neutrophils % 64.2 % (38.7-73.9); Platelet Count 208 T/CUMM (130-400); Red Blood Count 4.41 MC/CUMM (3.8-5.5); White Blood Count 15.4 T/CUMM (4-12)
[2021-07-11 07:14] LABS: Calcium 8.2 MG/DL (8.5-10.1); Osmolality,Calculated 265.1 MOS/KG (273-304); Potassium 4.1 MMOL/L (3.5-5.1)
[2021-07-11] MEDS: hydrALAZINE 25 MG TABLET PO SCH ×4 (11:18→20:36)
[2021-07-11] MEDS: SODIUM HYPOCHLORITE 0.25% IRRIG 473 ML BOTTLE TOP SCH (11:19)
[2021-07-11] MEDS: METOPROLOL TARTRATE 50 MG TABLET PO SCH ×2 (11:19→20:36)
[2021-07-11] MEDS: PANTOPRAZOLE 40 MG TABLET PO SCH (11:19)
[2021-07-11] MEDS: DEXTROSE 5% LACTATED RINGERS 1,000 ML IV SCH ×2 (12:00→17:29)
[2021-07-12] MEDS: ALBUTEROL/IPRATROPIUM 3 ML NEB RESP TX SCH ×4 (00:05→19:53)
[2021-07-12] MEDS: METOCLOPRAMIDE 10 MG/10 ML UDCUP PO SCH ×4 (00:12→17:47)
[2021-07-12] MEDS: HYDROmorphone 2 MG/1 ML VIAL IV PRN ×6 (00:13→21:56)
[2021-07-12] MEDS: DEXTROSE 5% LACTATED RINGERS 1,000 ML IV SCH ×5 (00:45→23:00)
[2021-07-12] MEDS ORDERED: BACLOFEN 10 MG TABLET PO PRN (02:10)
[2021-07-12] MEDS: BACLOFEN 10 MG TABLET PO PRN ×2 (02:19→21:32)
[2021-07-12] MEDS: SODIUM HYPOCHLORITE 0.25% IRRIG 473 ML BOTTLE TOP SCH (09:26)
[2021-07-12] MEDS: PANTOPRAZOLE 40 MG TABLET PO SCH (11:10)
[2021-07-12] MEDS: hydrALAZINE 25 MG TABLET PO SCH ×4 (11:10→21:31)
[2021-07-12] MEDS: METOPROLOL TARTRATE 50 MG TABLET PO SCH ×2 (11:11→21:31)
[2021-07-13] MEDS: ALBUTEROL/IPRATROPIUM 3 ML NEB RESP TX SCH ×3 (00:21→13:06)
[2021-07-13] MEDS: HYDROmorphone 2 MG/1 ML VIAL IV PRN ×5 (01:18→17:27)
[2021-07-13] MEDS: METOCLOPRAMIDE 10 MG/10 ML UDCUP PO SCH ×4 (01:19→18:46)
[2021-07-13] MEDS: ONDANSETRON 4 MG/2 ML VIAL IV PRN (03:32)
[2021-07-13] MEDS: DEXTROSE 5% LACTATED RINGERS 1,000 ML IV SCH ×3 (03:34→18:45)
[2021-07-13] MEDS: SODIUM HYPOCHLORITE 0.25% IRRIG 473 ML BOTTLE TOP SCH (09:50)
[2021-07-13] MEDS: PANTOPRAZOLE 40 MG TABLET PO SCH (09:50)
[2021-07-13] MEDS: METOPROLOL TARTRATE 50 MG TABLET PO SCH (09:50)
[2021-07-13] MEDS: hydrALAZINE 25 MG TABLET PO SCH ×3 (09:50→18:46)
[2021-07-13 13:14] VITALS: BP 122/70
== END 2021-07-13 20:15 | disposition hospice, home (50) | DRG 374 ==
LOC: EDBD → SUATTDRO → EDUNIT# → N.ED 14:55 → N.EDINP 14:55 → SUATTDRO 17:31 → OBSVTOIN 17:31 → N.3E 18:19 → N.TELES 07-02 01:07
PROVIDERS: ADMIT Internal Medicine; ATTEND Internal Medicine
PROC: EGDWPEG (ICD-10-PCS; 2021-07-06 07:35)